=== PATIENT | female | born 1950 | race Asian ===

== ENCOUNTER → 2018-10-12 | Outpatient (CLI) | payer MEDICARE ==
--- NOTE | 2018-10-12 14:23 | CARD ---
MR#: [id number] Date of Study: 10/12/2018 Ordering Physician: THERESA HANNON, Referring Physician: THERESA HANNON Tech: Raisa Martinez RDCS APPROVED REPORT EXAM: Two-dimensional and M-mode echocardiogram with Doppler and color Doppler. Other Information Quality : Good INDICATION Supraventricular Tachycardia 2D DIMENSIONS RVDd2.0 (2.9-3.5cm)Left Atrium(2D)2.7 (1.6-4.0cm) IVSd0.8 (0.7-1.1cm)Aortic Root(2D)2.6 (2.0-3.7cm) LVDd4.5 (3.9-5.9cm)LVOT Diameter2.0 (1.8-2.4cm) PWd0.8 (0.7-1.1cm)LVDs3.3 (2.5-4.0cm) FS (%) 26.8 %SV49.1 ml LVEF(%)55.0 (>50%) Aortic Valve AoV Peak Andrew.152.2cm/sAoV VTI26.3cm AO Peak GR.9.3mmHgLVOT Peak Andrew.147.6cm/s LVOT VTI 27.17cmAO Mean GR.5mmHg QUINTIN (VMAX)2.22rb8QUB (VTI)3.11cm2 Mitral Valve MV E Ekoqxqve25.2cm/sMV DECEL [id number] MV A Oryqyeex704.0cm/sMV FOH93tf E/A Ratio0.7MVA (PHT)3.21cm2 TDI E/Lateral E'9.3E/Medial E'10.5 Tricuspid Valve TR P. Jmcqrftu318wv/sRAP PRYOFFST8hrFm TR Peak Gr.65bdGzAAEO07hjNs Pulmonary Vein S1 Yyziowhr08.9cm/sD2 Moxlmfqp25.3cm/s LEFT VENTRICLE The left ventricle is normal size. There is normal left ventricular wall thickness. The left ventricu lar systolic function is normal and the ejection fraction is within normal range. The Ejection Fracti on is 55-60%. There is normal LV segmental wall motion. Transmitral Doppler flow pattern is Grade I-a bnormal relaxation pattern. RIGHT VENTRICLE The right ventricle is normal size. The right ventricular systolic function is normal. ATRIA The left atrium size is normal. The right atrium size is normal. The interatrial septum is intact wit h no evidence for an atrial septal defect or patent foramen ovale as noted on 2-D or Doppler imaging. AORTIC VALVE The aortic valve is calcified but opens well. Doppler and Color Flow revealed no significant aortic r egurgitation. There is no significant aortic valvular stenosis. MITRAL VALVE The mitral valve is calcified but opens well. There is no evidence of mitral valve prolapse. There is no mitral valve stenosis. Doppler and Color Flow revealed no mitral valve regurgitation noted. TRICUSPID VALVE The tricuspid valve is normal in structure and function. Doppler and Color Flow revealed trace to mil d tricuspid regurgitation. The PA pressure was estimated at 36 mmHg. There is no tricuspid valve sten osis. PULMONIC VALVE The pulmonic valve is not well visualized. Doppler and Color Flow revealed trace pulmonic valvular re gurgitation. There is no pulmonic valvular stenosis. GREAT VESSELS The aortic root is normal in size. The ascending aorta is normal in size. The IVC is normal in size a nd collapses >50% with inspiration. PERICARDIAL EFFUSION There is no evidence of significant pericardial effusion. Critical Notification Critical Value: No <Conclusion> The left ventricle is normal size. The left ventricular systolic function is normal and the ejection fraction is within normal range. The Ejection Fraction is 55-60%. There is no significant aortic valvular stenosis. Doppler and Color Flow revealed no significant aortic regurgitation. Doppler and Color Flow revealed no mitral valve regurgitation noted. Doppler and Color Flow revealed trace to mild tricuspid regurgitation. The PA pressure was estimated at 36 mmHg. Signed by : Freddy Mcnamara MD Electronically Approved : 10/12/2018 14:21:58
== END | disposition home or self-care (01) ==
LOC: ECHO 09:54
PROVIDERS: ATTEND Internal Medicine Cardiovascular Disease
DX: I47.1 Supraventricular tachycardia (principal)
CPT/HCPCS: 93306

== ENCOUNTER 2020-11-13 13:27 | Inpatient (IN) | payer MEDICARE ==
[~2020-11-13] VITALS: Ht 167.6 cm; Wt 56.3 kg
--- NOTE | 2020-11-13 14:09 | EKG ---
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
--- NOTE | 2020-11-13 14:19 | PHYS DOC ---
Past Medical History Past Medical History: Other Additional Past Medical Histor: SVT, TB IN 1974 Past Surgical History: No Surgical History Smoking Status: Never Smoker Alcohol Use: None General Adult EDM: Chief Complaint: elevated troponin HPI: HPI: 70-year-old female presenting to the emergency department today after her primary doctor sent her in because she had found out that she had a positive troponin and had left AMA from [facility]. The patient was initially seen after having a syncopal episode yesterday. She had gotten out of bed to use the restroom started feeling shaky and then woke up on the floor. Her found her on the floor. It was not witnessed event. She does not remember passing out. She has not had any blood in her stools. Earlier yesterday she had had an episode of SVT which she took flecainide which helped her symptoms. She is not on a blood thinner. At that time she did not have any chest pain or shortness of breath. She was treated in the emergency department at [facility] for SVT while she was in the department with adenosine which successfully converted the rhythm. She was being transferred here after being given a heparin drip to be admitted to [facility]. She left AGAINST MEDICAL ADVICE to take care of her sick however this morning when her primary doctor discovered what had happened and why she was in the hospital her primary doctor convinced her to come in. Currently she is feeling well denies any chest pain or shortness of breath and has no symptoms. Onset yesterday. Location heart. Duration intermittent. No alleviating factors. At the other hospital the patient had a head CT that was unremarkable. A chest x- ray that showed some multiple calcified nodules from history of TB without new consolidative infiltrates. C-spine was also negative for acute traumatic injury or abnormalities. Review of systems is negative for abdominal pain chest pain vomiting fevers chills headache. All other review of systems negative. ED course: 70-year-old female presenting with syncope and SVT yesterday was trying to be admitted to [facility] but left AMA. She arrives for evaluation here today after being convinced by her PCP to come in. On arrival here EKG here shows sinus rhythm with a regular rate. ST segments show a mild amount of ST depression in the lateral leads which is nonspecific. Does not meet STEMI criteria. Here the patient is well-appearing and without distress however her troponin is still significantly elevated. I called cardiology. Pinky nurse practitioner came and evaluated the person in the ER. We started the patient on heparin and because of the patient's allergy to aspirin which is "stopped breathing". We will give her Plavix. We will admit the patient to the [facility] as previously decided yesterday at [facility]. Cardiology closely involved. We will admit the patient to the hospitalist. I spoke with Dr. Carvajal who accepts patient for admission. Heart Score: Risk Factors: Risk Factors: DM, Current or recent (<one month) smoker, HTN, HLP, family history of CAD, obesity. Risk Scores: Score 0 - 3: 2.5% MACE over next 6 weeks - Discharge Home Score 4 - 6: 20.3% MACE over next 6 weeks - Admit for Clinical Observation Score 7 - 10: 72.7% MACE over next 6 weeks - Early Invasive Strategies Physical Exam: PE: Constitutional: Well developed, well nourished, no acute distress, non-toxic appearance. [] HENT: Normocephalic, atraumatic, bilateral external ears normal, oropharynx moist, no oral exudates, nose normal. [] Eyes: PERRLA, EOMI, conjunctiva normal, no discharge. [] Neck: Normal range of motion, no tenderness, supple, no stridor. [] Cardiovascular:Heart rate regular rhythm, no murmur [] Lungs & Thorax: Bilateral breath sounds clear to auscultation [] Abdomen: Bowel sounds normal, soft, no tenderness, no masses, no pulsatile masses. [] Skin: Warm, dry, no erythema, no rash. [] Back: No tenderness, no CVA tenderness. [] Extremities: No tenderness, no cyanosis, no clubbing, ROM intact, no edema. [] Neurologic: Mental status: Awake oriented and alert x3 Cranial nerves: Extraocular movements intact, eyebrows chris bilaterally, smile symmetric, uvula elevation nl, shoulder shrug intact bilaterally, tongue protrusion normal Clear speech. Normal [id number]-[id number]. Sensation: equal and normal in all extremities Strength: 5/5 in upper and lower extremities bilaterally Psychologic: Affect normal, judgement normal, mood normal. [] Current Patient Data: Vital Signs: Vital Signs Date Time Temp Pulse Resp B/P (MAP) Pulse Ox O2 Delivery O2 Flow Rate FiO2 11/13/20 13:30 98.9 77 12 174/79 (110) 100 Room Air 98.9 EKG: EKG: [] Radiology/Procedures: Radiology/Procedures: [] Course & Med Decision Making: Course & Med Decision Making Pertinent Labs and Imaging studies reviewed. (See chart for details) [] Dragon Disclaimer: Dragon Disclaimer: This electronic medical record was generated, in whole or in part, using a voice recognition dictation system. Departure Departure Impression: Primary Impression: Syncope Additional Impression: H/O paroxysmal supraventricular tachycardia Referrals: WASHINGTON BUCIO MD (PCP) GRACIELA MARTINEZ MD Nov 13, 2020 14:19
[2020-11-13 14:42] LABS: PLT ESTIMATE ADEQUATE (ADEQUATE)
[2020-11-13 14:46] LABS: BASO # 0.1 x10^3/uL (0.0-0.2); BASO % 1 % (0-3); EOS % 0 % (0-3); HEMATOCRIT 35.6 % (36.0-47.0); HEMOGLOBIN 11.8 g/dL (12.0-15.5); LYMPH % 32 % (24-48); MEAN CORPUSCULAR HEMOGLOBIN 30 pg (25-35); MEAN CORPUSCULAR HGB CONC 33 g/dL (31-37); MEAN CORPUSCULAR VOLUME 90 fL (79-100); MONO # 1.1 x10^3/uL (0.0-1.1); MONO % 9 % (0-9); NEUT # 7.4 x10^3/uL (1.8-7.7); NEUT % 58 % (31-73); PLATELET COUNT 262 x10^3/uL (140-400); RED BLOOD COUNT 3.95 x10^6/uL (3.50-5.40); RED CELL DISTRIBUTION WIDTH 12.6 % (11.5-14.5); WHITE BLOOD COUNT 12.6 x10^3/uL (4.0-11.0)
[2020-11-13 15:22] LABS: CALCIUM 9.4 mg/dL (8.5-10.1); CREATININE 0.6 mg/dL (0.6-1.0); GFR 98.8; POTASSIUM 4.2 mmol/L (3.5-5.1)
[2020-11-13 15:27] LABS: ALBUMIN 3.7 g/dL (3.4-5.0); ALBUMIN/GLOBULIN RATIO 1.2 (1.0-1.7); MAGNESIUM 2.2 mg/dL (1.8-2.4); TOTAL BILIRUBIN 1.2 mg/dL (0.2-1.0); TOTAL PROTEIN 6.8 g/dL (6.4-8.2)
[2020-11-13] MEDS ORDERED: HEPARIN 25,000UTS/250ML PREMIX 250 ML IV PRN ×2 (15:45)
[2020-11-13] MEDS ORDERED: HEPARIN for IV BOLUS 10,000 UNIT/10 ML VIAL. IV PRN ×2 (15:45)
--- NOTE | 2020-11-13 15:49 | PDOC2 ---
JENN ALBARRAN AIR POLLUTION INSPECTOR 11/13/20 1549: CARDIAC CONSULT DATE OF CONSULT Date of Consult DATE: 11/13/20 TIME: 15:43 REASON FOR CONSULT Reason for Consult: Elevated troponin REFERRING PHYSICIAN Referring Physician: Evette SOURCE Source: Chart review, Patient HISTORY OF PRESENT ILLNESS HISTORY OF PRESENT ILLNESS This is a 70 yo [place] female admitted for complains of fall. She was at [facility] initially yesterday. She complained of initially getting shaky then the next thing she noted was she was on the floor and has no recollection her falling. found her on the floor. Noted with some bowel incontinence but no urinary incontinence. No hx of seizures. No noted trauma in regards to her fall. She did have some palpitations with known hx of SVT and took flecanide. She then went to [facility] and noted with elevated troponin and with EKG changes. She then developed SVT narrow complex. She was then given adenosine and converted to SR. Her troponin was in the 2s and was getting started on heaprin when she decided to leave [place] since her is sick and no one could take care of him aside from her. She then went to her PCP today and told him what happened and told her to go to ER at [facility]. Verified that she just started having her palpitations yesterday. Denies any chest pain, SOA, claiming that she is doing OK. She is significantly anxious refusing some meds and asking side effects consistently and explaining that some of the meds we give such as heparin IV may make her heart go fast. Also noted that her SBP at home sometimes runs in the 80s when she takes metoprolol. Presently her BP is stable anxious but no cardiac symptoms. Denies any n/v or diarrhea. She does admits that she does not drink enough fluids. She worries about her who has cancer but not debilitated. PAST MEDICAL HISTORY Cardiovascular: HTN (on lisinopril), Hyperlipidemia, Other (PSVT) Pulmonary: Other (TB in 1973) CENTRAL NERVOUS SYSTEM: Other (No pertinent history) GI: No pertinent hx Heme/Onc: No pertinent hx Hepatobiliary: No pertinent hx Psych: Anxiety Musculoskeletal: Osteoarthritis Rheumatologic: No pertinent hx, Rheumatoid arthritis (on plaquenil) Infectious disease: No pertinent hx ENT: No pertinent hx Renal/: No pertinent hx Endocrine: No pertinent hx Dermatology: No pertinent hx PAST SURGICAL HISTORY Past Surgical History: No pertinent history FAMILY HISTORY Family History noncontributory SOCIAL HISTORY Smoke: No ALCOHOL: none Drugs: None Lives: with Family (spouse) ALLERGIES ALLERGIES: Coded Allergies: aspirin (Verified Allergy, Unknown, 11/13/20) "I COULDN'T BREATHE." ROS Review of System 14 point ROS evaluated with pertinent positives noted per HPI. PHYSICAL EXAM General: Alert, Oriented X3, Cooperative, No acute distress HEENT: Atraumatic, Mucous membr. moist/pink Lungs: Clear to auscultation, Normal air movement Heart: Regular rate (SR), Normal S1, Normal S2, No murmurs Abdomen: Soft, No tenderness Extremities: No cyanosis, No edema Skin: No significant lesion Neuro: Normal speech, Sensation intact Psych/Mental Status: Mental status NL, Other (anxious) MUSCULOSKELETAL: Osteoarthritic changes both hands VITALS/I&O VITALS/I&O: Vital Signs Date Time Temp Pulse Resp B/P (MAP) Pulse Ox O2 Delivery O2 Flow Rate FiO2 11/13/20 14:46 70 146/70 (95) 98 Room Air 11/13/20 13:30 98.9 12 98.9 LABS Lab: Laboratory Tests Test 11/13/20 13:35 11/13/20 15:00 White Blood Count 12.6 x10^3/uL (4.0-11.0) H Red Blood Count 3.95 x10^6/uL (3.50-5.40) Hemoglobin 11.8 g/dL (12.0-15.5) L Hematocrit 35.6 % (36.0-47.0) L Mean Corpuscular Volume 90 fL (79-100) Mean Corpuscular Hemoglobin 30 pg (25-35) Mean Corpuscular Hemoglobin Concent 33 g/dL (31-37) Red Cell Distribution Width 12.6 % (11.5-14.5) Platelet Count 262 x10^3/uL (140-400) Neutrophils (%) (Auto) 58 % (31-73) Lymphocytes (%) (Auto) 32 % (24-48) Monocytes (%) (Auto) 9 % (0-9) Eosinophils (%) (Auto) 0 % (0-3) Basophils (%) (Auto) 1 % (0-3) Neutrophils # (Auto) 7.4 x10^3/uL (1.8-7.7) Lymphocytes # (Auto) 4.0 x10^3/uL (1.0-4.8) Monocytes # (Auto) 1.1 x10^3/uL (0.0-1.1) Eosinophils # (Auto) 0.0 x10^3/uL (0.0-0.7) Basophils # (Auto) 0.1 x10^3/uL (0.0-0.2) Platelet Estimate Adequate (ADEQUATE) Sodium Level 142 mmol/L (136-145) Potassium Level 4.2 mmol/L (3.5-5.1) Chloride Level 106 mmol/L (98-107) Carbon Dioxide Level 27 mmol/L (21-32) Anion Gap 9 (6-14) Blood Urea Nitrogen 17 mg/dL (7-20) Creatinine 0.6 mg/dL (0.6-1.0) Estimated GFR (Cockcroft-Gault) 98.8 BUN/Creatinine Ratio 28 (6-20) H Glucose Level 97 mg/dL (70-99) Calcium Level 9.4 mg/dL (8.5-10.1) Magnesium Level 2.2 mg/dL (1.8-2.4) Total Bilirubin 1.2 mg/dL (0.2-1.0) H Aspartate Amino Transferase (AST) 35 U/L (15-37) Alanine Aminotransferase (ALT) 30 U/L (14-59) Alkaline Phosphatase 67 U/L (46-116) Troponin I Quantitative 2.947 ng/mL (0.000-0.055) Total Protein 6.8 g/dL (6.4-8.2) Albumin 3.7 g/dL (3.4-5.0) Albumin/Globulin Ratio 1.2 (1.0-1.7) Laboratory Tests 11/13/20 13:35 Laboratory Tests 11/13/20 15:00 ECHOCARDIOGRAM ECHOCARDIOGRAM <Conclusion> The left ventricle is normal size. The left ventricular systolic function is normal and the ejection fraction is within normal range. The Ejection Fraction is 55-60%. There is no significant aortic valvular stenosis. Doppler and Color Flow revealed no significant aortic regurgitation. Doppler and Color Flow revealed no mitral valve regurgitation noted. Doppler and Color Flow revealed trace to mild tricuspid regurgitation. The PA pressure was estimated at 36 mmHg. DATE: 10/12/18 1421 ASSESSMENT/PLAN ASSESSMENT/PLAN 1. NSTEMI: trop at 2.9. ST depression to inferior leads on EKG yesterday. No CP/SOA 2. PSVT: converted with Adenosine yesterday. Known hx. 3. Syncope with nontraumatic fall: likely due to arrhythmia 4. ASA allergy: "could not breath" 5. HTN: controlled 5. HLP 6. Hx of RA: took self off plaquenil for 10 months as she is scared about side effects but recently restarted back. 7. Anxiety Recommendations 1. No known ischemic w/u. Trend trop. Reported could not breath with ASA. Will give x1 plavix. No heparin as she refused this. Agreed with lovenox 2. She is quite anxious, agreed to xanax 3. Will check TSH, lipids and TTE 4. Start on on metoprolol. Continue home statin. 5. Troponin elevation likely precipitated by repeated SVT as she has been having palpitations at home but could not completely rule out significant CAD although not having any significant cardiac symptoms such as CP nor SOA. Also could not ascertain her compliance with her metoprolol and flecainide given her resistance to medications and anxiety about side effects. Will reeval tomorrow, obtain TTE and will discuss further with her if she is willing to proceed with any ischemic workup. 6. Will obtain orthostatic readings. Start on IVF tonight while NPO. CHARISSE DANIELS MD 11/13/20 1736: CARDIAC CONSULT ASSESSMENT/PLAN ASSESSMENT/PLAN Pt. seen and examined. Agree with above TALENT PROGRAM MANAGER note. If patient is willing, will proceed with cath, otherwise medical mgmt. Thanks. JENN ALBARRAN APRN Nov 13, 2020 15:49 CHARISSE DANIELS MD Nov 13, 2020 17:36
[2020-11-13] MEDS ORDERED: ALPRAZolam 0.25 MG TABLET PO ONE (16:45)
[2020-11-13] MEDS ORDERED: CLOPIDOGREL BISULFATE 75 MG TABLET PO ONE ×2 (16:45)
--- NOTE | 2020-11-13 18:38 | HP ---
ADMIT DATE: 11/13/2020 CHIEF COMPLAINT: Elevated troponin. HISTORY OF PRESENT ILLNESS: The patient is a pleasant 70-year-old female from [facility]. She states she is living at home with her who has cancer, he has had 2 recent cancer surgeries. She went to [facility] last night, but apparently left against medical advice. She was told to transfer her here because her troponins were high. Today, apparently, her primary care doctor told her she needed to come on in, so she has now arrived to our ER where indeed her troponin is 2.94. She has had an acute myocardial infarction. I have discussed the case with ER physician. We are going to admit the patient and consult Cardiology. PAST MEDICAL HISTORY: Noncompliance, hypertension, hyperlipidemia, SVT, anxiety, depression, osteoarthritis. ALLERGIES: ASPIRIN. FAMILY HISTORY: Coronary artery disease. SOCIAL HISTORY: She lives at home with her who has cancer. She is retired. No smoking, drinking, or drugs. MEDICATIONS: Reviewed, please refer to the MRAD. REVIEW OF SYSTEMS: GENERAL: No history of weight change, weakness or fevers. SKIN: No bruising, hair changes or rashes. EYES: No blurred, double or loss of vision. NOSE AND THROAT: No history of nosebleeds, hoarseness or sore throat. HEART: No history of palpitations, chest pain or shortness of breath on exertion. LUNGS: Denies cough, hemoptysis, wheezing or shortness of breath. GASTROINTESTINAL: Denies changes in appetite, nausea, vomiting, diarrhea or constipation. GENITOURINARY: No history of frequency, urgency, hesitancy or nocturia. NEUROLOGIC: Denies history of numbness, tingling, tremor or weakness. PSYCHIATRIC: No history of panic, anxiety or depression. ENDOCRINE: No history of heat or cold intolerance, polyuria or polydipsia. EXTREMITIES: Denies muscle weakness, joint pain, pain on walking or stiffness. PHYSICAL EXAMINATION: VITALS: Within normal limits and are stable. GENERAL: No apparent distress. Alert and oriented. HEENT: Normal cephalic atraumatic, external auditory canals are patent. EYES: Extraocular muscles are intact, pupils are equally round and reactive to light and accommodation. MUSCULOSKELETAL: Well developed, well nourished, good range of motion. ENDOCRINE: No thyromegaly was palpated. LYMPHATICS: No cervical chain or axillary nodes were noted. HEMATOPOIETIC: No bruising. NECK: Supple, no JVD, no thyromegaly was noted. LUNGS: Clear to auscultation in all lung fernandez without rhonchi or wheezing. HEART: RRR, S1, S2 present. Peripheral pulses intact, no obvious murmurs were noted. ABDOMEN: Soft, nontender. Positive bowel sounds no organomegaly, normal bowel sounds. EXTREMITIES: Without any cyanosis, clubbing, or edema. Pedal pulses intact, Homans sign is negative. NEUROLOGIC: Normal speech, normal tone. A & O x3, moves all extremities, no obvious focal deficits. PSYCHIATRIC: Normal affect, normal mood. Stable. SKIN: No ulcerations or rashes, good skin turgor, no jaundice. VASCULAR: Good capillary refill, neurovascular bundle appears to be intact. LABORATORY DATA: Troponin is 2.94. ASSESSMENT AND PLAN: Acute myocardial infarction. The patient has been admitted. We are starting Lovenox 60 mg subcutaneous q.12 hours. We have consulted to Cardiology. I suspect she will need to go to the label tacker, but we will await Cardiology input. Serial cardiac enzymes, serial EKGs, echocardiogram, cardiac monitoring, Plavix as SHE IS ALLERGIC TO ASPIRIN. LONG-TERM PROGNOSIS: Guarded. ROGERIO BUI DO DR: ALESSANDRO/katharine JOB#: [id number] / [id number]
[2020-11-13] MEDS: METOPROLOL TART IMMED RELEASE 25 MG TABLET. PO SCH ×2 (19:08→21:08)
[2020-11-13 19:20] VITALS: BP 141/71
--- NOTE | 2020-11-13 20:00 | NUR ---
PT ADMITTED TO ROOM 258 WITH SVT, SYNCOPE, NSTEMI, A/OX4, DENIES PAIN AT THIS TIME. ASSESSMENT COMPLETE, ORIENTED TO UNIT, STAFF, AND POC. CALL LIGHT IN PLACE, WILL CONT TO MONITOR PT STATUS AND STATUS. PMRN
[2020-11-13 22:13] VITALS: BP 145/65
[2020-11-13] MEDS ORDERED: IV NORMAL SALINE 1000ML BAG 1,000 ML IV ONE (23:30)
[2020-11-14 02:46] VITALS: BP 133/80
[2020-11-14 07:00] VITALS: BP 176/85
[2020-11-14 07:32] LABS: BASO % 1 % (0-3); EOS # 0.1 x10^3/uL (0.0-0.7); EOS % 1 % (0-3); HEMATOCRIT 35.7 % (36.0-47.0); HEMOGLOBIN 11.8 g/dL (12.0-15.5); LYMPH # 2.6 x10^3/uL (1.0-4.8); LYMPH % 43 % (24-48); MEAN CORPUSCULAR HEMOGLOBIN 30 pg (25-35); MEAN CORPUSCULAR HGB CONC 33 g/dL (31-37); MEAN CORPUSCULAR VOLUME 90 fL (79-100); MONO # 0.4 x10^3/uL (0.0-1.1); MONO % 7 % (0-9); NEUT # 2.9 x10^3/uL (1.8-7.7); NEUT % 48 % (31-73); PLATELET COUNT 229 x10^3/uL (140-400); RED BLOOD COUNT 3.96 x10^6/uL (3.50-5.40); RED CELL DISTRIBUTION WIDTH 12.9 % (11.5-14.5); WHITE BLOOD COUNT 6.1 x10^3/uL (4.0-11.0)
[2020-11-14 07:47] LABS: ALBUMIN 3.3 g/dL (3.4-5.0); CALCIUM 8.6 mg/dL (8.5-10.1); CREATININE 0.5 mg/dL (0.6-1.0); POTASSIUM 3.9 mmol/L (3.5-5.1); TOTAL BILIRUBIN 1.1 mg/dL (0.2-1.0); TOTAL PROTEIN 6.6 g/dL (6.4-8.2)
[2020-11-14 08:13] LABS: CHOLESTEROL/HDL RATIO 3.2
[2020-11-14] MEDS ORDERED: LORA0.5T96 PO (09:47)
[2020-11-14] MEDS ORDERED: LISI-130 PO (09:47)
[2020-11-14] MEDS ORDERED: OMEP20CA16 PO (09:47)
[2020-11-14] MEDS ORDERED: ATOR80TA72 PO (09:47)
[2020-11-14] MEDS ORDERED: LATA2.5D2 EACHEYE (09:47)
[2020-11-14] MEDS ORDERED: METO25TA2 PO (09:47)
[2020-11-14] MEDS ORDERED: LISINOPRIL 20 MG TABLET PO SCH (10:15)
[2020-11-14] MEDS ORDERED: LORazepam 0.5 MG TABLET PO SCH (10:15)
[2020-11-14] MEDS ORDERED: REGADENOSON 0.4 MG/5 ML DISP.SYRIN. IV ONE (10:30)
[2020-11-14 11:00] VITALS: BP 148/72
[2020-11-14 11:05] VITALS: BP 162/79
[2020-11-14 11:10] VITALS: BP 165/79
--- NOTE | 2020-11-14 11:18 | PDOC ---
[employer] PROGRESS NOTE Date of Service DOS: DATE: 11/14/20 TIME: 11:13 Chief Complaint Chief Complaint Elevated troponin Syncope History of Present Illness History of Present Illness The patient is a pleasant 70-year-old female from [facility]. She states she is living at home with her who has cancer, he has had 2 recent cancer surgeries. She went to [facility] last night, but apparently left against medical advice. She was told to transfer her here because her troponins were high. Today, apparently, her primary care doctor told her she needed to come on in, so she has now arrived to our ER where indeed her troponin is 2.94. She has had an acute myocardial infarction. I have discussed the case with ER physician. We are going to admit the patient and consult Cardiology. 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 -Chart reviewed Vitals/I&O Vitals/I&O: Vital Signs Date Time Temp Pulse Resp B/P (MAP) Pulse Ox O2 Delivery O2 Flow Rate FiO2 11/14/20 10:39 58 176/85 11/14/20 07:00 98.0 17 98 Room Air 98.0 I & O 11/13/20 11/13/20 11/14/20 15:00 23:00 07:00 Intake Total 400 ml Output Total 1000 ml Balance 400 ml -1000 ml Physical Exam General: Alert, Oriented X3, Cooperative, No acute distress Heart: Regular rate (SR), Normal S1, Normal S2, No murmurs Lungs: Clear Abdomen: Soft, No tenderness Extremities: No cyanosis, No edema Skin: No significant lesion Labs Labs: Laboratory Tests Test 11/13/20 13:35 11/13/20 15:00 11/13/20 18:20 11/14/20 00:01 White Blood Count 12.6 x10^3/uL (4.0-11.0) Red Blood Count 3.95 x10^6/uL (3.50-5.40) Hemoglobin 11.8 g/dL (12.0-15.5) Hematocrit 35.6 % (36.0-47.0) Mean Corpuscular Volume 90 fL (79-100) Mean Corpuscular Hemoglobin 30 pg (25-35) Mean Corpuscular Hemoglobin Concent 33 g/dL (31-37) Red Cell Distribution Width 12.6 % (11.5-14.5) Platelet Count 262 x10^3/uL (140-400) Neutrophils (%) (Auto) 58 % (31-73) Lymphocytes (%) (Auto) 32 % (24-48) Monocytes (%) (Auto) 9 % (0-9) Eosinophils (%) (Auto) 0 % (0-3) Basophils (%) (Auto) 1 % (0-3) Neutrophils # (Auto) 7.4 x10^3/uL (1.8-7.7) Lymphocytes # (Auto) 4.0 x10^3/uL (1.0-4.8) Monocytes # (Auto) 1.1 x10^3/uL (0.0-1.1) Eosinophils # (Auto) 0.0 x10^3/uL (0.0-0.7) Basophils # (Auto) 0.1 x10^3/uL (0.0-0.2) Platelet Estimate Adequate (ADEQUATE) Activated Partial Thromboplast Time 26 SEC (24-38) Heparin Anti-Xa Act, Unfractionated < 0.10 IU/mL (0.30-0.70) Sodium Level 142 mmol/L (136-145) Potassium Level 4.2 mmol/L (3.5-5.1) Chloride Level 106 mmol/L (98-107) Carbon Dioxide Level 27 mmol/L (21-32) Anion Gap 9 (6-14) Blood Urea Nitrogen 17 mg/dL (7-20) Creatinine 0.6 mg/dL (0.6-1.0) Estimated GFR (Cockcroft-Gault) 98.8 BUN/Creatinine Ratio 28 (6-20) Glucose Level 97 mg/dL (70-99) Calcium Level 9.4 mg/dL (8.5-10.1) Magnesium Level 2.2 mg/dL (1.8-2.4) Total Bilirubin 1.2 mg/dL (0.2-1.0) Aspartate Amino Transf (AST/SGOT) 35 U/L (15-37) Alanine Aminotransferase (ALT/SGPT) 30 U/L (14-59) Alkaline Phosphatase 67 U/L (46-116) Creatine Kinase 371 U/L (26-192) Troponin I Quantitative 2.947 ng/mL (0.000-0.055) 2.345 ng/mL (0.000-0.055) C-Reactive Protein, Quantitative 3.7 mg/L (0-3.3) Total Protein 6.8 g/dL (6.4-8.2) Albumin 3.7 g/dL (3.4-5.0) Albumin/Globulin Ratio 1.2 (1.0-1.7) Thyroid Stimulating Hormone (TSH) 0.601 uIU/mL (0.358-3.74) SARS-CoV-2 Antigen (Rapid) Negative (NEGATIVE) Test 11/14/20 06:56 White Blood Count 6.1 x10^3/uL (4.0-11.0) Red Blood Count 3.96 x10^6/uL (3.50-5.40) Hemoglobin 11.8 g/dL (12.0-15.5) Hematocrit 35.7 % (36.0-47.0) Mean Corpuscular Volume 90 fL (79-100) Mean Corpuscular Hemoglobin 30 pg (25-35) Mean Corpuscular Hemoglobin Concent 33 g/dL (31-37) Red Cell Distribution Width 12.9 % (11.5-14.5) Platelet Count 229 x10^3/uL (140-400) Neutrophils (%) (Auto) 48 % (31-73) Lymphocytes (%) (Auto) 43 % (24-48) Monocytes (%) (Auto) 7 % (0-9) Eosinophils (%) (Auto) 1 % (0-3) Basophils (%) (Auto) 1 % (0-3) Neutrophils # (Auto) 2.9 x10^3/uL (1.8-7.7) Lymphocytes # (Auto) 2.6 x10^3/uL (1.0-4.8) Monocytes # (Auto) 0.4 x10^3/uL (0.0-1.1) Eosinophils # (Auto) 0.1 x10^3/uL (0.0-0.7) Basophils # (Auto) 0.0 x10^3/uL (0.0-0.2) Sodium Level 144 mmol/L (136-145) Potassium Level 3.9 mmol/L (3.5-5.1) Chloride Level 109 mmol/L (98-107) Carbon Dioxide Level 28 mmol/L (21-32) Anion Gap 7 (6-14) Blood Urea Nitrogen 12 mg/dL (7-20) Creatinine 0.5 mg/dL (0.6-1.0) Estimated GFR (Cockcroft-Gault) 122.0 BUN/Creatinine Ratio 24 (6-20) Glucose Level 81 mg/dL (70-99) Calcium Level 8.6 mg/dL (8.5-10.1) Total Bilirubin 1.1 mg/dL (0.2-1.0) Aspartate Amino Transf (AST/SGOT) 42 U/L (15-37) Alanine Aminotransferase (ALT/SGPT) 32 U/L (14-59) Alkaline Phosphatase 60 U/L (46-116) Total Protein 6.6 g/dL (6.4-8.2) Albumin 3.3 g/dL (3.4-5.0) Albumin/Globulin Ratio 1.0 (1.0-1.7) Triglycerides Level 70 mg/dL (0-150) Cholesterol Level 181 mg/dL (0-200) LDL Cholesterol, Calculated 111 mg/dL (0-100) VLDL Cholesterol, Calculated 14 mg/dL (0-40) Non-HDL Cholesterol Calculated 125 mg/dL (0-129) HDL Cholesterol 56 mg/dL (40-60) Cholesterol/HDL Ratio 3.2 Review of Systems Review of Systems: Denies SOB. Denies fever. Assessment and Plan Assessmemt and Plan Problems Medical Problems: (1) H/O paroxysmal supraventricular tachycardia Status: Acute (2) Syncope Status: Acute Elevated troponin Syncope 11/14/2020 Plan 1 Cardiac monitoring 2 Await further cardiac input 3 Home meds 4 Await PCR covid test 5 Trend labs 6 Full code 7 DVT prophylaxis Comment Review of Relevant I have reviewed the following items margot (where applicable) has been applied. Medications: Current Medications Medications (Trade) Dose Ordered Sig/Shahnaz Route PRN Reason Start Time Stop Time Status Last Admin Dose Admin Clopidogrel Bisulfate (Plavix) 75 mg 1X ONCE PO 11/13/20 16:45 11/13/20 16:46 DC 11/13/20 16:39 Metoprolol Tartrate (Lopressor) 25 mg BID PO 11/13/20 16:45 11/14/20 10:49 DC 11/13/20 21:08 Sodium Chloride 1,000 ml @ 75 mls/hr 1X ONCE IV 11/13/20 23:30 11/14/20 12:49 11/13/20 18:17 Enoxaparin Sodium (Lovenox 60mg Syringe) 60 mg Q12HR SQ 11/13/20 21:00 11/14/20 08:08 Lorazepam (Ativan) 1 mg PRN Q4HRS PRN PO ANXIETY / AGITATION 11/13/20 22:00 11/13/20 22:29 Lisinopril (Prinivil) 40 mg DAILY PO 11/14/20 10:15 11/14/20 10:39 Lorazepam (Ativan) 0.5 mg DAILY PO 11/14/20 10:15 11/14/20 10:40 Pantoprazole Sodium (Protonix) 40 mg DAILYAC PO 11/14/20 11:30 11/14/20 10:40 Justifications for Admission Other Justification ROGERIO BUI III DO Nov 14, 2020 11:18
[2020-11-14] MEDS ORDERED: PANTOPRAZOLE 40 MG TABLET.DR. PO SCH (11:30)
--- NOTE | 2020-11-14 12:00 | EKG ---
[facility] [address] [place] [address] Test Date: 2020-11-14 Test Time: 11:58:38 Pat Name: RAY CHRISTY Department: Room: 258 1 Gender: F Cut [employer] Saw Set Up Operator: ESTEE : 1950 Requested By: JENN ALBARRAN Order Number: [id number] Reading MD: Measurements Intervals [place] Rate: 82 P: 66 NH: 136 QRS: 26 QRSD: 84 T: 20 QT: 414 QTc: 487 Interpretive Statements SINUS RHYTHM INCOMPLETE RIGHT BUNDLE BRANCH BLOCK PROLONGED QT NO SPECIFIC ECG ABNORMALITIES RI6.02 Compared to ECG 11/13/2020 13:31:49 Incomplete right bundle-branch block now present Prolonged QT interval now present
--- NOTE | 2020-11-14 12:44 | PDOC ---
JENN ALBARRAN QUALITY CONTROL ASSOCIATE 11/14/20 1243: CARDIO Progress Notes Date and Time Date of Service 11/14/2020 Time of Evaluation 1230 Subjective Subjective: No Chest Pain, No shortness of breath, No Palpitations Vitals Vitals Vital Signs Date Time Temp Pulse Resp B/P (MAP) Pulse Ox O2 Delivery O2 Flow Rate FiO2 11/14/20 11:00 97.5 60 18 148/72 (97) 98 Room Air 97.5 Weight Weight [ ] Input and Output Intake and Output Intake and Output 11/14/20 07:00 Intake Total 400 ml Output Total 1000 ml Balance -600 ml Intake Oral 400 ml Output Urine Total 1000 ml Laboratory Labs Laboratory Tests Test 11/13/20 13:35 11/13/20 15:00 11/13/20 18:20 11/14/20 00:01 White Blood Count 12.6 x10^3/uL (4.0-11.0) Red Blood Count 3.95 x10^6/uL (3.50-5.40) Hemoglobin 11.8 g/dL (12.0-15.5) Hematocrit 35.6 % (36.0-47.0) Mean Corpuscular Volume 90 fL (79-100) Mean Corpuscular Hemoglobin 30 pg (25-35) Mean Corpuscular Hemoglobin Concent 33 g/dL (31-37) Red Cell Distribution Width 12.6 % (11.5-14.5) Platelet Count 262 x10^3/uL (140-400) Neutrophils (%) (Auto) 58 % (31-73) Lymphocytes (%) (Auto) 32 % (24-48) Monocytes (%) (Auto) 9 % (0-9) Eosinophils (%) (Auto) 0 % (0-3) Basophils (%) (Auto) 1 % (0-3) Neutrophils # (Auto) 7.4 x10^3/uL (1.8-7.7) Lymphocytes # (Auto) 4.0 x10^3/uL (1.0-4.8) Monocytes # (Auto) 1.1 x10^3/uL (0.0-1.1) Eosinophils # (Auto) 0.0 x10^3/uL (0.0-0.7) Basophils # (Auto) 0.1 x10^3/uL (0.0-0.2) Platelet Estimate Adequate (ADEQUATE) Activated Partial Thromboplast Time 26 SEC (24-38) Heparin Anti-Xa Act, Unfractionated < 0.10 IU/mL (0.30-0.70) Sodium Level 142 mmol/L (136-145) Potassium Level 4.2 mmol/L (3.5-5.1) Chloride Level 106 mmol/L (98-107) Carbon Dioxide Level 27 mmol/L (21-32) Anion Gap 9 (6-14) Blood Urea Nitrogen 17 mg/dL (7-20) Creatinine 0.6 mg/dL (0.6-1.0) Estimated GFR (Cockcroft-Gault) 98.8 BUN/Creatinine Ratio 28 (6-20) Glucose Level 97 mg/dL (70-99) Calcium Level 9.4 mg/dL (8.5-10.1) Magnesium Level 2.2 mg/dL (1.8-2.4) Total Bilirubin 1.2 mg/dL (0.2-1.0) Aspartate Amino Transf (AST/SGOT) 35 U/L (15-37) Alanine Aminotransferase (ALT/SGPT) 30 U/L (14-59) Alkaline Phosphatase 67 U/L (46-116) Creatine Kinase 371 U/L (26-192) Troponin I Quantitative 2.947 ng/mL (0.000-0.055) 2.345 ng/mL (0.000-0.055) C-Reactive Protein, Quantitative 3.7 mg/L (0-3.3) Total Protein 6.8 g/dL (6.4-8.2) Albumin 3.7 g/dL (3.4-5.0) Albumin/Globulin Ratio 1.2 (1.0-1.7) Thyroid Stimulating Hormone (TSH) 0.601 uIU/mL (0.358-3.74) SARS-CoV-2 Antigen (Rapid) Negative (NEGATIVE) Test 11/14/20 06:56 White Blood Count 6.1 x10^3/uL (4.0-11.0) Red Blood Count 3.96 x10^6/uL (3.50-5.40) Hemoglobin 11.8 g/dL (12.0-15.5) Hematocrit 35.7 % (36.0-47.0) Mean Corpuscular Volume 90 fL (79-100) Mean Corpuscular Hemoglobin 30 pg (25-35) Mean Corpuscular Hemoglobin Concent 33 g/dL (31-37) Red Cell Distribution Width 12.9 % (11.5-14.5) Platelet Count 229 x10^3/uL (140-400) Neutrophils (%) (Auto) 48 % (31-73) Lymphocytes (%) (Auto) 43 % (24-48) Monocytes (%) (Auto) 7 % (0-9) Eosinophils (%) (Auto) 1 % (0-3) Basophils (%) (Auto) 1 % (0-3) Neutrophils # (Auto) 2.9 x10^3/uL (1.8-7.7) Lymphocytes # (Auto) 2.6 x10^3/uL (1.0-4.8) Monocytes # (Auto) 0.4 x10^3/uL (0.0-1.1) Eosinophils # (Auto) 0.1 x10^3/uL (0.0-0.7) Basophils # (Auto) 0.0 x10^3/uL (0.0-0.2) Sodium Level 144 mmol/L (136-145) Potassium Level 3.9 mmol/L (3.5-5.1) Chloride Level 109 mmol/L (98-107) Carbon Dioxide Level 28 mmol/L (21-32) Anion Gap 7 (6-14) Blood Urea Nitrogen 12 mg/dL (7-20) Creatinine 0.5 mg/dL (0.6-1.0) Estimated GFR (Cockcroft-Gault) 122.0 BUN/Creatinine Ratio 24 (6-20) Glucose Level 81 mg/dL (70-99) Calcium Level 8.6 mg/dL (8.5-10.1) Total Bilirubin 1.1 mg/dL (0.2-1.0) Aspartate Amino Transf (AST/SGOT) 42 U/L (15-37) Alanine Aminotransferase (ALT/SGPT) 32 U/L (14-59) Alkaline Phosphatase 60 U/L (46-116) Total Protein 6.6 g/dL (6.4-8.2) Albumin 3.3 g/dL (3.4-5.0) Albumin/Globulin Ratio 1.0 (1.0-1.7) Triglycerides Level 70 mg/dL (0-150) Cholesterol Level 181 mg/dL (0-200) LDL Cholesterol, Calculated 111 mg/dL (0-100) VLDL Cholesterol, Calculated 14 mg/dL (0-40) Non-HDL Cholesterol Calculated 125 mg/dL (0-129) HDL Cholesterol 56 mg/dL (40-60) Cholesterol/HDL Ratio 3.2 Physical Exam HEENT: Neck Supple W Full Motion Chest: Symmetric LUNGS: Clear to Auscultation Heart: S1S2, RRR (SR/SB) Abdomen: Soft N/T Extremities: No Edema, No Calf Tenderness Neurology: alert, oriented, follow commands Assessment Assessment 1. NSTEMI: peaked trop at 2.9. possibly demand mediated from recurrent SVT 2. PSVT: converted with Adenosine .Known hx.with flecainide at home 3. Syncope with nontraumatic fall: likely due to arrhythmia, negative for orthostasis 4. ASA allergy: "could not breath" 5. HTN: controlled 5. HLP 6. Hx of RA: took self off plaquenil for 10 months as she is scared about side effects but recently restarted back. 7. Anxiety: per PCP Recommendations 1. Continue with plavix for at least 1 month. Refused LHC, Awaiting MPI and TTE report 2. DC flecainide. Continue toprol and lisinopril. Continue statin. Would not be able to titrate up BB due to bradycardia lowest in the mid40s 3. Consider EP referral if pt agrees. 4. Discussed treatment compliance and hydration adequacy 5. Possible DC this afternoon. 6. Follow up in office. Justicifation of Admission Dx: Justifications for Admission: Justification of Admission Dx: Yes CHARISSE DANIELS MD 11/15/20 1439: CARDIO Progress Notes Plan Plan Late entry for 11/14/20 Pt. seen and examined. Agree with above DOCTOR OF NAPRAPATHIC MEDICINE note. Supportive care. JENN ALBARRAN APRN Nov 14, 2020 12:43 CHARISSE DANIELS MD Nov 15, 2020 14:39
--- NOTE | 2020-11-14 13:56 | NUR ---
SS following for discharge planning. SS reviewed pt and discussed with pt RN. 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 COVID19 negative on rapid test. Cardiology following. Pt having second half of stress test today. PT/OT ordered. SS will continue to follow for discharge planning.
[2020-11-14] MEDS ORDERED: METOPROLOL SUCC 24HR ER 25 MG TAB.ER.24H. PO SCH (14:30)
[2020-11-14] MEDS ORDERED: ACETAMINOPHEN 325 MG TABLET. PO PRN (14:30)
[2020-11-14 14:56] VITALS: BP 119/71
[2020-11-14] MEDS ORDERED: CLOP75TA PO (15:46)
--- NOTE | 2020-11-14 16:58 | NUR ---
Discharge Note: [facility] Discharge instructions and discharge home medications reviewed with Patient and a copy given. All questions have been answered and understanding verbalized. The following instructions and handouts were given: clopidogrel, metoprolol, chest pain. Patient discharged to home with self care via wheelchair.
--- NOTE | 2020-11-14 17:12 | CARD ---
MR#: [id number] Date of Study: 11/14/2020 Ordering Physician: JENN ALBARRAN, Referring Physician: JENN ALBARRAN Tech: Batsheva Valdez [facility] APPROVED REPORT EXAM: Two-dimensional and M-mode echocardiogram with Doppler and color Doppler. Other Information Quality : AverageHR: 64bpm Rhythm : NSR INDICATION Chest Pain 2D DIMENSIONS RVDd2.7 (2.9-3.5cm)Left Atrium(2D)3.5 (1.6-4.0cm) IVSd1.0 (0.7-1.1cm)Aortic Root(2D)3.0 (2.0-3.7cm) LVDd4.4 (3.9-5.9cm)LVOT Diameter2.2 (1.8-2.4cm) PWd1.0 (0.7-1.1cm)LVDs2.2 (2.5-4.0cm) FS (%) 50.2 %SV73.5 ml Aortic Valve AoV Peak Andrew.134.1cm/sAoV VTI30.7cm AO Peak GR.7.2mmHgLVOT Peak Andrew.106.6cm/s LVOT VTI 24.68cmAO Mean GR.3mmHg QUINTIN (VMAX)2.87fr1ZSQ (VTI)3.07cm2 Mitral Valve MV E Ikcwblrf61.8cm/sMV DECEL UFNU598ze MV A Esiesfja87.6cm/sMV EMT25mk E/A Ratio1.0MVA (PHT)4.58cm2 TDI E/Lateral E'8.7E/Medial E'8.9 Pulmonary Valve PV Peak Maebqokv830.4cm/sPV Peak Grad.5mmHg Tricuspid Valve TR P. Actjjmdv192xi/sTR Peak Gr.23mmHg Pulmonary Vein S1 Higtsyzj01.7cm/sD2 Ofprkwuw90.4cm/s PVa [id number] LEFT VENTRICLE The left ventricle is normal size. There is normal left ventricular wall thickness. The left ventricu lar systolic function is normal and the ejection fraction is within normal range. Estimated ejection fraction 55-60%. There is normal LV segmental wall motion. The left ventricular diastolic function a nd filling is normal for age. RIGHT VENTRICLE The right ventricle is normal size. There is normal right ventricular wall thickness. The right ventr icular systolic function is normal. ATRIA The left atrium size is normal. The right atrium size is normal. The interatrial septum is intact wit h no evidence for an atrial septal defect or patent foramen ovale as noted on 2-D or Doppler imaging. AORTIC VALVE The aortic valve is normal in structure and function. Doppler and Color Flow revealed trace aortic re gurgitation. There is no significant aortic valvular stenosis. MITRAL VALVE The mitral valve is normal in structure and function. There is no evidence of mitral valve prolapse. There is no mitral valve stenosis. Doppler and Color-flow revealed mild mitral regurgitation. TRICUSPID VALVE The tricuspid valve is normal in structure and function. Doppler and Color Flow revealed mild tricusp id regurgitation. Estimated PAP 25 mmHg. PULMONIC VALVE The pulmonary valve is normal in structure and function. Doppler and Color Flow revealed trace to mil d pulmonic valvular regurgitation. GREAT VESSELS The aortic root is normal in size. The ascending aorta is normal in size. The pulmonary artery is nor mal. The IVC is normal in size and collapses >50% with inspiration. PERICARDIAL EFFUSION There is no evidence of significant pericardial effusion. Critical Notification Critical Value: No <Conclusion> The left ventricle is normal size. The left ventricular systolic function is normal and the ejection fraction is within normal range. Estimated ejection fraction 55-60%. Doppler and Color Flow revealed trace aortic regurgitation. There is no significant aortic valvular stenosis. Doppler and Color-flow revealed mild mitral regurgitation. Doppler and Color Flow revealed mild tricuspid regurgitation. Estimated PAP 25 mmHg. Signed by : Freddy Mcnamara MD Electronically Approved : 11/14/2020 17:12:18
--- NOTE | 2020-11-14 17:42 | RAD ---
MR#: [id number] Date of Study: 11/14/2020 Ordering Physician: CHARISSE DANIELS, Referring Physician: YOVANI PEREZ Tech: JOSELO Yeboah, ARRT (R) (N) APPROVED REPORT Test Type: Pharmacological Stress Nurse/Tech: Melisa Logan RN Test Indications: Chest pain Cardiac History: High cholesterol, Hypertension Medications: See Electronic Medical Record Medical History: See Electronic Medical Record Resting ECG: SR with BBB Resting Heart Rate: 65 bpm Resting Blood Pressure: 145/78mmHg Pretest Chest Pain: No chest pain Nurse/Tech Notes S1,S2 and lungs clear to auscultation. Consent: The procedure was explained to the patient in lay terms. Informed consent was witnessed. Rony eout was entered into [employer]. History and Stress Test performed by RT [place]) (N) Pharm. Details Pharmacologic stress testing was performed using 0.4mg per 5ml of regadenoson given intravenously ove r 7-10 seconds. Stress Symptoms Nausea,Fatigue POST EXERCISE Reason for Termination: Infusion complete Target HR: No Max HR: 101 bpm 79% of Maximum Predicted HR: 127 bpm Max Blood Pressure: 141/78mmHg Blood Pressure response to exercise: Normal blood pressure response during stress. Heart Rate response to exercise: WNL Chest Pain: No. Arrhythmia: No. ST Change: No. INTERPRETATION Stress EKG Conclusion: The resting EKG shows a sinus rhythm and nonspecific ST-T wave changes. The stress EKG shows no significant changes from baseline. No EKG evidence of stress-induced ischemia. Imaging Protocol IMAGE PROTOCOL: MPI-stress only Rest: Stress: Viability: Radiopharm.Tc99m Sestamibi Dose30.1mCi Img Date 11/14/2020 Inj-Img [id number]. Stress Admin Site: IV - Right AntecubitalAdministrator: RT Adam (Quinton)(N) STRESS DATA End Diast. Vol.68.0mlAv. Heart Rate70.0bpm End Syst. Vol.12.0mlCO Index BSA4.0L/min Myocardial Sfji699.0gEject. Ykwdjggs94.0% Stress Rates Pk. Fill Rate3.18EDV/secLVtime Pk. Fill 250.88msec Pk. Empty Rate4.78ESV/secLVtime Pk. Ebxzb393.59msec 10/20 Pk. Fill1.59EDV/sec Stress Scores Regional WT0.00Summed WT0.00 Regional WM0.00Summed WM0.00 LV Perfusion The stress images showed no significant defects. There is no evidence of reversible ischemia or infarct on this study. Wall Motion LV systolic function is normal with an ejection fraction of greater than 70%. LV Perf. Quant 17 Seg. SSS0.00 Stress Defect Extent (% LAD)0.00Rest Defect Extent (% LAD)Rev. Defect Extent (% LAD) Stress Defect Extent (% LCX) 0.00Rest Defect Extent (% LCX)Rev. Defect Extent (% LCX) Stress Defect Extent (% RCA)0.00Rest Defect Extent (% RCA)Rev. Defect Extent (% RCA) Stress Defect Extent (% KELSI)0.00Rest Defect Extent (% KELSI)Rev. Defect Extent (% KELSI) Conclusion 1. No EKG evidence of stress-induced ischemia. 2. The stress scans are normal. 3. Nuclear imaging shows no ischemia or infarct. 4. Left ventricular systolic function is normal with an ejection fraction of greater than 70%. 5. Low risk Lexiscan nuclear stress test. Signed by : Freddy Mcnamara MD Electronically Approved : 11/14/2020 17:41:33
[2020-11-14] MEDS ORDERED: LATANOPROST 0.005% OPHTH SOLUTION 2.5ML BOTTLE. OU SCH (21:00)
[2020-11-14] MEDS ORDERED: ATORVASTATIN CALCIUM 10 MG TABLET. PO SCH (21:00)
[2020-11-15] MEDS ORDERED: PANTOPRAZOLE 40 MG TABLET.DR. PO SCH (07:30)
[2020-11-15] MEDS ORDERED: METOPROLOL SUCC 24HR ER 25 MG TAB.ER.24H. PO SCH (09:00)
[2020-11-15] MEDS ORDERED: LORazepam 0.5 MG TABLET PO SCH (09:00)
[2020-11-15] MEDS ORDERED: LISINOPRIL 20 MG TABLET PO SCH (09:00)
--- NOTE | 2020-11-15 09:02 | DS ---
DATE OF DISCHARGE: 11/14/2020 ADMISSION DIAGNOSES: Elevated troponin with possible acute myocardial infarction and supraventricular tachycardia. DISCHARGE DIAGNOSES: Resolving elevated troponin, suspect demand ischemia from recurrent supraventricular tachycardia; history of noncompliance; hypertension; hyperlipidemia; depression; anxiety and osteoarthritis. CONSULTS: Cardiology. PROCEDURES: None. HOSPITAL COURSE: The patient is a pleasant elderly female who presented with elevated troponin. She had actually been to [facility] and left against medical advice before her doctor called her and told her to come on in to our hospital. We admitted the patient. We consulted Cardiology. She was taken for a stress test, which was negative. We think the elevated troponin was secondary to recurrent SVT. She was doing well yesterday, we discharged after her stress test. DISPOSITION: Home. ACTIVITY: As tolerated. DIET: Low sodium. MEDICATIONS: Please see the MRAD. TOTAL TIME: 32 minutes. ROGERIO BUI DO DR: ALESSANDRO/katharine JOB#: [id number] / [id number]
== END 2020-11-14 16:55 | disposition home or self-care (01) | DRG 282 ==
LOC: ER 13:27 → 2 SOUTH 15:55
PROVIDERS: ADMIT Internal Medicine; ATTEND Internal Medicine
DX: I47.1 Supraventricular tachycardia (principal); I21.A1 Myocardial infarction type 2; Z20.822 Contact with and (suspected) exposure to COVID-19; E11.9 Type 2 diabetes mellitus without complications; E78.5 Hyperlipidemia, unspecified; F32.9 Major depressive disorder, single episode, unspecified; F41.9 Anxiety disorder, unspecified; I10 Essential (primary) hypertension; M19.90 Unspecified osteoarthritis, unspecified site; R15.9 Full incontinence of feces; M06.9 Rheumatoid arthritis, unspecified; R77.8 Other specified abnormalities of plasma proteins; R55 Syncope and collapse; Z88.6 Allergy status to analgesic agent; Z91.19 Patient's noncompliance with other medical treatment and regimen; Z82.49 Family history of ischemic heart disease and other diseases of the circulatory system; Z86.11 Personal history of tuberculosis; I25.2 Old myocardial infarction; Z79.899 Other long term (current) drug therapy
CPT/HCPCS: 36415; 78452; 80053; 80061; 82550; 83735; 84443; 84484; 85025; 85520; 85730; 86140; 87426; 93005; 93017; 93306; 96360; A9500; J1650; J2785; J7030; U0003; 99285-25; G0378

== ENCOUNTER 2022-01-19 15:19 | Emergency (ER) | payer MEDICARE ==
[~2022-01-19] VITALS: Ht 160 cm; Wt 59.8 kg
[~2022-01-19 15:19] MED LIST: ATOR80TA72 PO; CLOP75TA PO; LATA2.5D2 EACHEYE; LISI-130 PO; LORA0.5T96 PO; METO25TA2 PO; OMEP20CA16 PO
[2022-01-19] MEDS ORDERED: ADENOSINE 6 MG/2 ML VIAL. IV ONE ×2 (15:45)
[2022-01-19] MEDS ORDERED: IV NORMAL SALINE 1000ML BAG 1,000 ML IV SCH (15:45)
--- NOTE | 2022-01-19 16:18 | RAD ---
XR CHEST 1V History: Reason: svt / Spl. Instructions: / History: Comparison: December 08, 2021 Findings: Mild ill-defined mid and bibasilar opacities. No pleural effusion. No pneumothorax. Multifocal calcif ied nodules bilaterally, likely prior granulomatous disease. Impression: 1. Mild ill-defined mid and bibasilar opacities, may represent atelectasis or developing infiltrates . If persistent clinical concern, recommend follow-up. Electronically signed by: Arturo Miller DO (01/19/2022 4:15 PM) [id number]
[2022-01-19 16:28] LABS: BASO # 0.1 x10^3/uL (0.0-0.2); BASO % 1 % (0-3); EOS # 0.2 x10^3/uL (0.0-0.7); EOS % 3 % (0-3); HEMATOCRIT 36.9 % (36.0-47.0); HEMOGLOBIN 12.2 g/dL (12.0-15.5); LYMPH # 3.5 x10^3/uL (1.0-4.8); LYMPH % 47 % (24-48); MEAN CORPUSCULAR HEMOGLOBIN 30 pg (25-35); MEAN CORPUSCULAR HGB CONC 33 g/dL (31-37); MEAN CORPUSCULAR VOLUME 92 fL (79-100); MONO # 0.6 x10^3/uL (0.0-1.1); MONO % 8 % (0-9); NEUT # 3.2 x10^3/uL (1.8-7.7); NEUT % 42 % (31-73); PLATELET COUNT 225 x10^3/uL (140-400); RED BLOOD COUNT 4.04 x10^6/uL (3.50-5.40); RED CELL DISTRIBUTION WIDTH 12.7 % (11.5-14.5); WHITE BLOOD COUNT 7.5 x10^3/uL (4.0-11.0)
[2022-01-19 16:36] LABS: CALCIUM 8.9 mg/dL (8.5-10.1); CREATININE 0.8 mg/dL (0.6-1.0); GFR 70.7; POTASSIUM 3.9 mmol/L (3.5-5.1)
[2022-01-19 16:42] LABS: ALBUMIN 4.2 g/dL (3.4-5.0); ALBUMIN/GLOBULIN RATIO 1.3 (1.0-1.7); TOTAL BILIRUBIN 0.5 mg/dL (0.2-1.0); TOTAL PROTEIN 7.5 g/dL (6.4-8.2)
--- NOTE | 2022-01-19 17:05 | PHYS DOC ---
Past Medical History Past Medical History: Other Additional Past Medical Histor: SVT, TB [place] 1974 Past Surgical History: No Surgical History Smoking Status: Never Smoker Alcohol Use: None General Adult EDM: Chief Complaint: RAPID HEART RATE HPI: HPI: Patient is a 71 year old presents to the ED with SVT. Patient states that she has a history of SVT which are usually responsive 6 mg adenosine. States this always happens when she eats too much and she feels like something stuck in her throat. Patient denies any chest pain shortness of breath denies any nausea. Review of Systems: Review of Systems: Constitutional: Denies fever or chills. Eyes: Denies change in visual acuity. HENT: Denies nasal congestion or sore throat. Respiratory: Denies cough or shortness of breath. Cardiovascular: Palpitations denies chest pain or edema. GI: Denies abdominal pain, nausea, vomiting, bloody stools or diarrhea. : Denies dysuria. Musculoskeletal: Denies back pain or joint pain. Integument: Denies rash. Neurologic: Denies headache, focal weakness or sensory changes. Endocrine: Denies polyuria or polydipsia. Lymphatic: Denies swollen glands. Psychiatric: Denies depression or anxiety. Heart Score: C/O Chest Pain: No Risk Factors: Risk Factors: DM, Current or recent (<one month) smoker, HTN, HLP, family histo ry of CAD, obesity. Risk Scores: Score 0 - 3: 2.5% MACE over next 6 weeks - Discharge Home Score 4 - 6: 20.3% MACE over next 6 weeks - Admit for Clinical Observation Score 7 - 10: 72.7% MACE over next 6 weeks - Early Invasive Strategies Current Medications: Current Medications Medications (Trade) Dose Ordered Sig/[facility] Start Time Stop Time Status Last Admin Dose Admin Adenosine (Adenocard) 6 mg 1X ONCE 01/19/22 15:45 01/19/22 15:51 DC 01/19/22 15:36 6 MG Diltiazem HCl (Cardizem Iv Push) 10 mg 1X ONCE 01/19/22 15:45 01/19/22 15:51 DC 01/19/22 15:42 10 MG Lorazepam (Ativan Inj) 1 mg 1X ONCE 01/19/22 16:00 01/19/22 16:01 DC 01/19/22 16:00 1 MG Sodium Chloride 1,000 ml @ 100 mls/hr Q10H 01/19/22 15:45 01/20/22 01:44 01/19/22 15:32 100 MLS/HR Allergies: Allergies: Allergies Coded Allergies Type Severity Reaction Last Updated Verified aspirin Allergy Severe 11/13/20 Yes Physical Exam: PE: Constitutional: Well developed, well nourished, no acute distress, non-toxic appearance. Anxious HENT: Normocephalic, atraumatic, bilateral external ears normal, oropharynx moist, no oral exudates, nose normal. Eyes: PERRLA, EOMI, conjunctiva normal, no discharge. [ Neck: Normal range of motion, no tenderness, supple, no stridor. Cardiovascular: Patient is tachycardic, no murmur Lungs & Thorax: Bilateral breath sounds clear to auscultation Abdomen: Bowel sounds normal, soft, no tenderness, no masses, no pulsatile masses. Skin: Warm, dry, no erythema, no rash. Back: No tenderness, no CVA tenderness. Extremities: No tenderness, no cyanosis, no clubbing, ROM intact, no edema. Neurologic: Alert and oriented X 3, normal motor function, normal sensory function, no focal deficits noted. Psychologic: Affect normal, judgement normal, mood normal. Current Patient Data: Labs: Laboratory Tests Test 01/19/22 15:30 White Blood Count 7.5 x10^3/uL (4.0-11.0) Red Blood Count 4.04 x10^6/uL (3.50-5.40) Hemoglobin 12.2 g/dL (12.0-15.5) Hematocrit 36.9 % (36.0-47.0) Mean Corpuscular Volume 92 fL (79-100) Mean Corpuscular Hemoglobin 30 pg (25-35) Mean Corpuscular Hemoglobin Concent 33 g/dL (31-37) Red Cell Distribution Width 12.7 % (11.5-14.5) Platelet Count 225 x10^3/uL (140-400) Neutrophils (%) (Auto) 42 % (31-73) Lymphocytes (%) (Auto) 47 % (24-48) Monocytes (%) (Auto) 8 % (0-9) Eosinophils (%) (Auto) 3 % (0-3) Basophils (%) (Auto) 1 % (0-3) Neutrophils # (Auto) 3.2 x10^3/uL (1.8-7.7) Lymphocytes # (Auto) 3.5 x10^3/uL (1.0-4.8) Monocytes # (Auto) 0.6 x10^3/uL (0.0-1.1) Eosinophils # (Auto) 0.2 x10^3/uL (0.0-0.7) Basophils # (Auto) 0.1 x10^3/uL (0.0-0.2) Sodium Level 137 mmol/L (136-145) Potassium Level 3.9 mmol/L (3.5-5.1) Chloride Level 101 mmol/L (98-107) Carbon Dioxide Level 26 mmol/L (21-32) Anion Gap 10 (6-14) Blood Urea Nitrogen 16 mg/dL (7-20) Creatinine 0.8 mg/dL (0.6-1.0) Estimated GFR (Cockcroft-Gault) 70.7 BUN/Creatinine Ratio 20 (6-20) Glucose Level 165 mg/dL (70-99) H Calcium Level 8.9 mg/dL (8.5-10.1) Total Bilirubin 0.5 mg/dL (0.2-1.0) Aspartate Amino Transferase (AST) 25 U/L (15-37) Alanine Aminotransferase (ALT) 27 U/L (14-59) Alkaline Phosphatase 94 U/L (46-116) Total Protein 7.5 g/dL (6.4-8.2) Albumin 4.2 g/dL (3.4-5.0) Albumin/Globulin Ratio 1.3 (1.0-1.7) Laboratory Tests 01/19/22 15:30 Laboratory Tests 01/19/22 15:30 Vital Signs: Vital Signs Date Time Temp Pulse Resp B/P (MAP) Pulse Ox O2 Delivery O2 Flow Rate FiO2 01/19/22 15:57 122 17 160/92 (114) 98 Room Air 01/19/22 15:19 97.5 97.5 EKG: EKG: [] Patient's initial EKG was SVT with a heart rate of 193 with narrow complex. Radiology/Procedures: Radiology/Procedures: [] Course & Med Decision Making: Course & Med Decision Making Pertinent Labs and Imaging studies reviewed. (See chart for details) [] Patient was refractory to 2 doses of adenosine while in the ER. Patient was given 10 mg of Cardizem which converted patient back to a normal sinus rhythm. Patient is currently asymptomatic and observed. Patient sustained a normal sinus rhythm. Patient states that she needs to leave to take care of her who is currently ill. Patient would like to leave. Strict return precautions were discussed patient is AAO x3 understands the risks and benefits. Critical care time 30 minutes Woodrow Disclaimer: Woodrow Disclaimer: This electronic medical record was generated, in whole or in part, using a voice recognition dictation system. Departure Departure Referrals: WASHINGTON BUCIO MD (PCP) MARTIN CLINE DO Jan 19, 2022 17:04
[2022-01-19 17:27] VITALS: BP 150/77
--- NOTE | 2022-01-20 07:24 | EKG ---
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
--- NOTE | 2022-01-20 07:24 | EKG ---
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
== END 2022-01-19 17:40 | disposition home or self-care (01) ==
LOC: ER 15:19
DX: I47.1 Supraventricular tachycardia (principal); Z88.6 Allergy status to analgesic agent
CPT/HCPCS: 36415; 71045; 80053; 84484; 85025; 93005; 96361; 96374; 96375; 96376; 99291; J0153; J2060; J3490; J7030

== ENCOUNTER → 2022-02-03 | Outpatient (CLI) | payer MEDICARE ==
[2022-01-19 17:27] VITALS: BP 150/77
--- NOTE | 2022-02-03 17:29 | CARD ---
MR#: [id number] Date of Study: 02/03/2022 Ordering Physician: CHARISSE DANIELS, Referring Physician: CHARISSE DANIELS, Tech: Trish Walters [facility] APPROVED REPORT EXAM: Two-dimensional and M-mode echocardiogram with Doppler and color Doppler. Other Information Quality : AverageHR: 64bpm Rhythm : NSR INDICATION SVT 2D DIMENSIONS RVDd2.9 (2.9-3.5cm)Left Atrium(2D)2.7 (1.6-4.0cm) IVSd1.0 (0.7-1.1cm)Aortic Root(2D)2.9 (2.0-3.7cm) LVDd4.8 (3.9-5.9cm)LVOT Diameter1.9 (1.8-2.4cm) PWd0.8 (0.7-1.1cm)LVDs3.4 (2.5-4.0cm) FS (%) 28.6 %SV58.4 ml Aortic Valve AoV Peak Andrew.148.4cm/sAoV VTI33.6cm AO Peak GR.8.8mmHgLVOT Peak Andrew.124.1cm/s LVOT VTI 26.09cmAO Mean GR.5mmHg QUINTIN (VMAX)1.37lx2IDK (VTI)2.20cm2 Mitral Valve MV E Ppsjkkda65.0cm/sMV DECEL YTSH847sh MV A Psibcbil08.7cm/sMV XTB68gz E/A Ratio0.9MVA (PHT)3.63cm2 TDI E/Lateral E'8.7E/Medial E'9.7 Pulmonary Valve PV Peak Sfkobnmq546.9cm/sPV Peak Grad.6mmHg Tricuspid Valve TR P. Fqindqkg530mu/sRAP [id number] TR Peak Gr.38caPsZAQV61idXp Pulmonary Vein S1 Zhwbmzdl31.1cm/sD2 Xwsrfear25.3cm/s PVa [id number] LEFT VENTRICLE The left ventricle is normal size. There is normal left ventricular wall thickness. Left ventricular systolic function is normal. LV ejection fraction of 55 to 60%. No regional wall motion abnormalities noted. The left ventricular diastolic function is normal. No left ventricle thrombus noted on this s tudy. There is no ventricular septal defect visualized. There is no left ventricular aneurysm. There is no mass noted in the left ventricle. RIGHT VENTRICLE The right ventricle is normal size. There is normal right ventricular wall thickness. The right ventr icular systolic function is normal. ATRIA The left atrium size is normal. The right atrium size is normal. AORTIC VALVE The aortic valve is normal in structure and function. No aortic regurgitation is present. There is no aortic valvular stenosis. There is no aortic valvular vegetation. MITRAL VALVE The mitral valve is normal in structure and function. There is no evidence of mitral valve prolapse. There is no mitral valve stenosis. Doppler and Color-flow revealed trace mitral regurgitation. TRICUSPID VALVE The tricuspid valve is normal in structure and function. Doppler and Color Flow revealed mild tricusp id regurgitation. The pulmonary artery systolic pressure is estimated at less than 30 mmHg. There is no tricuspid valve prolapse or vegetation. There is no tricuspid valve stenosis. PULMONIC VALVE The pulmonary valve is normal in structure and function. Doppler and Color Flow revealed trace to mil d pulmonic valvular regurgitation. There is no pulmonic valvular stenosis. GREAT VESSELS The aortic root is normal in size. The ascending aorta is normal in size. The IVC is normal in size a nd collapses >50% with inspiration. PERICARDIAL EFFUSION There is no evidence of significant pericardial effusion. Critical Notification Critical Value: No <Conclusion> The left ventricle is normal size. Left ventricular systolic function is normal. LV ejection fraction of 55 to 60%. No aortic regurgitation is present. There is no aortic valvular stenosis. Doppler and Color-flow revealed trace mitral regurgitation. Doppler and Color Flow revealed mild tricuspid regurgitation. The pulmonary artery systolic pressure is estimated at less than 30 mmHg. Signed by : Freddy Mcnamara MD Electronically Approved : 02/03/2022 17:29:41
== END ==
LOC: ECHO 07:42
PROVIDERS: ATTEND Internal Medicine Cardiovascular Disease
DX: I08.8 Other rheumatic multiple valve diseases (principal); I47.1 Supraventricular tachycardia
CPT/HCPCS: 93306; C8929